=== PATIENT | female | born 1935 | race Caucasian/White ===

== ENCOUNTER → 2017-12-16 | Outpatient (CLI) | payer MEDICARE, BC ==
[~2017-12-16] MED LIST: ADVAIR 250/501 EA INH; ASPIR LOW81 MG PO; DALI500T PO; LISINOPRIL10 MG PO; MAGNESIUM; NEXIUM40 MG PO; SPIRIVA18 MCG INH; VENTOLIN0.09 MG/AC INH; VITAMIN D
== END | disposition home or self-care (01) ==
LOC: RAD 11:10
DX: J43.9 Emphysema, unspecified (principal); I10 Essential (primary) hypertension

== ENCOUNTER → 2018-03-09 | Outpatient (CLI) | payer MEDICARE, BC | END | disposition home or self-care (01) | LOC: ORTHO 02:19 | DX: I70.90 Unspecified atherosclerosis (principal); M77.9 Enthesopathy, unspecified; M79.642 Pain in left hand; R20.0 Anesthesia of skin ==

== ENCOUNTER → 2018-05-04 | Outpatient (CLI) | payer MEDICARE, BC | END | disposition home or self-care (01) | LOC: CP 11:51 | DX: J45.909 Unspecified asthma, uncomplicated (principal); J44.9 Chronic obstructive pulmonary disease, unspecified ==

== ENCOUNTER → 2019-01-06 | Outpatient (CLI) | payer MEDICARE, BC | END | disposition home or self-care (01) | LOC: CARD 00:17 | DX: R06.02 Shortness of breath (principal) ==

== ENCOUNTER 2021-07-11 10:04 | Emergency (ER) | payer MEDICARE, BC ==
[~2021-07-11] VITALS: Wt 81.6 kg
[2021-07-11 11:00] LABS: BASO % 0.3 % (0.0-1.0); EOS % 0.1 % (1.0-4.0); HEMATOCRIT 39.5 % (37.0-47.0); LYMPH % 11.7 % (27.0-41.0); MEAN CELL VOLUME 78.7 fl (81.0-99.0); MEAN CORPUSCULAR HGB 24.1 pg (27.0-31.0); MEAN CORPUSCULAR HGB CONC 30.6 g/dl (33.0-37.0); MEAN PLATELET VOLUME 9.1 fl (9.6-12.3); MONO # 0.5 10*3/uL (0.1-1.0); MONO % 5.3 % (3.0-9.0); NEUT # 7.1 10*3/uL (2.3-7.9); NEUT % 82.3 % (47.0-73.0); PLATELET COUNT AUTOMATED 275 10*3/uL (130-400); RED BLOOD COUNT 5.02 10*6/uL (4.10-5.10); RED CELL DISTRI WIDTH 15.6 % (0-14.5); WHITE BLOOD COUNT 8.6 10*3/uL (4.8-10.8)
[2021-07-11 11:15] LABS: ALBUMIN 3.6 gm/dl (3.1-4.5); ALKALINE PHOSPHATASE 79 U/L (45-117); BUN 19 mg/dl (7-24); CHLORIDE 99 mmol/L (98-107); CREATININE 0.75 mg/dL (0.55-1.02); SGOT/AST 21 IU/L (3-35); SGPT/ALT 19 U/L (12-78); SODIUM 135 mmol/L (136-145); TOTAL PROTEIN 7.4 gm/dL (6.4-8.2)
[2021-07-11 16:20] LABS: BILIRUBIN Negative (Negative); BLOOD 1+ (Negative); CLARITY Clear (Clear); COLOR Yellow (Yellow); GLUCOSE Trace (Negative); KETONE 1+ (Negative); LEUKO ESTERASE Negative (Negative); NITRITE Negative (Negative); UROBILINOGEN 0.2 E.U./dl (0.0-1.0)
[2021-07-11 16:56] LABS: BACTERIA TRACE; EPITHELIAL CELLS 0-2
[2021-07-11] MEDS ORDERED: LEVOFLOXACIN750 M2 PO (17:10)
== END 2021-07-11 17:26 | disposition home or self-care (01) ==
LOC: ED 10:04
PROVIDERS: Student in an Organized Health Care Education/Training Program
DX: J18.9 Pneumonia, unspecified organism (principal); Z88.2 Allergy status to sulfonamides; Z88.8 Allergy status to other drugs, medicaments and biological substances; Z79.899 Other long term (current) drug therapy; Z79.82 Long term (current) use of aspirin